=== PATIENT | female | born 1945 | race Caucasian/White ===

== ENCOUNTER 2017-10-19 11:42 | Emergency (ER) | payer MEDICARE, OTHER, SELFPAY ==
[2017-10-19 11:43] VITALS: BP 121/70; PULSE 65; RESP 18; TEMP 36.6; O2SAT 98; BMI 26.6
[2017-10-19] MEDS: Diphth,Pertuss(Acell),Tet Vac 0.5 ML Vial IM (13:58)
--- NOTE | 2017-10-19 14:13 | ED.VISSUMM ---
- ER Visit Summary Date of Service: 10/19/17 Chief Complaint: [Facial injury status post fall] History of Present Illness: The patient is a 72 F [presents to the emergency department after sustaining a fall while at [employer] today. Patient states that she missed a step coming down the steps and fell forward striking the edge of a metal shelf with the right side of her face. Patient denies loss of consciousness. Injury occurred around 10:40 AM. Patient denies any neck pain. She denies chest pain or abdominal pain. She denies any other injuries. Patient states her last tetanus shot was more than 20 years ago.] Physical Examination: [HEENT-PERRLA, EOMI. Cranial nerves II through XII grossly intact. TMs clear. Mucous membranes moist. No adenopathy. Patient has obvious contusion to the right eye with subconjunctival hemorrhage noted. Patient has a laceration through the right upper eyelid measuring approximately 2 cm in length. Patient has a nasal bone laceration that is well approximated and horizontal across the nasal bone. Patient tender over the nasal bone. Patient has tenderness over the right zygomatic arch. Cardiovascular-regular rate and rhythm without murmur or ectopy Lungs-clear to auscultation, chest wall stable without crepitus or subcu emphysema Abdomen-normoactive bowel sounds, soft, nontender, no rebound or rigidity, no peritoneal signs. Extremities-intact ?4, normal range of motion, normal pulses, atraumatic Test Results: [CT facial bones obtained showed fracture of the orbital wall as well as nasal bone and right zygomatic arch.] Emergency Department Course and Treatment: Case was discussed with Dr. Jose Cedillo who will see patient in the office once discharged from the ER and he will take care of the lacerations and evaluate the eye further. [] Treatment Plan: [Transfer to Dr. Jose Cedillo's office.] Disposition: [Transfer] Impression: [Right orbital fracture Nasal fracture Right upper lid laceration Nasal laceration] This note was generated with [employer] dictation software. It may contain incorrect words, spelling, and punctuation that were not noted in review of the chart prior to signing ED Disposition - Plan for ED Patient: Chief Complaint: Laceration Referrals: [facility],Out of [Primary Care Provider] -
--- NOTE | 2017-10-19 14:15 | ED.DEP ---
ED Disposition - Plan for ED Patient: Chief Complaint: Laceration Instructions: Facial Fracture, ED Fx Nasal Conf W X Ray, ED Laceration Facial Sutr Tape Prescriptions: Hydrocodone/Acetaminophen [[place] 5-325 Tablet] 1 ea PO 4X/DAY PRN PRN 5 Days #20 tab PRN Reason: Pain Referrals: [facility],Out of [Primary Care Provider] - Jose Cedillo MD [STAFF PHYSICIAN] - As soon as possible
[2017-10-19] MEDS: Ondansetron 4 MG/2 ML Vial IM (14:38)
[2017-10-19] MEDS: Morphine 4 MG/ML Syringe IM (14:38)
== END 2017-10-19 14:46 | disposition home or self-care (01) ==
LOC: ED 12:32
PROVIDERS: Emergency Provider Emergency Medicine; Family Provider Family Medicine
DX: S02.81XA Fracture of other specified skull and facial bones, right side, initial encounter for closed fracture (principal); S02.2XXA Fracture of nasal bones, initial encounter for closed fracture; S01.21XA Laceration without foreign body of nose, initial encounter; S01.111A Laceration without foreign body of right eyelid and periocular area, initial encounter; W10.9XXA Fall (on) (from) unspecified stairs and steps, initial encounter; Y93.89 Activity, other specified; Y92.22 Religious institution as the place of occurrence of the external cause; Y99.8 Other external cause status; I10 Essential (primary) hypertension
CPT/HCPCS: 70486; 90715; 96372; 99282; J2405

== ENCOUNTER 2017-10-28 08:37 | Day surgery (SDC) | payer MEDICARE, OTHER, SELFPAY ==
--- NOTE | 2017-10-24 15:55 | EKG12_ITS ---
Test Reason : PREOP Blood Pressure : / mmHG Vent. Rate : 055 BPM Atrial Rate : 055 BPM P-R Int : 166 ms QRS Dur : 080 ms QT Int : 448 ms P-R-T Axes : 045 -35 -11 degrees QTc Int : 428 ms Sinus bradycardia Left axis deviation Low voltage QRS Abnormal ECG Confirmed by AQUILINO NUNES ([id number]), tape editor ERYN MORE ([id number]) on 10/29/2017 2:48:05 PM Referred By: Chuck Carrera Confirmed By:AQUILINO NUNES
[2017-10-24 17:01] LABS: ALB/GLOB Ratio 0.9 RATIO (0.9-2.4); AST(SGOT) 19 U/L (15-37); Alanine Aminotransfer ALT/SGPT 29 U/L (13-56); Albumin, Serum 3.8 g/dL (3.2-5.0); Alkaline Phosphatase 65 U/L (45-117); Anion Gap 9 (5-15); BUN 12 mg/dL (7-18); BUN/Creat Ratio 13.8 RATIO (10-20); Calcium,Total 9.2 mg/dL (8.5-10.1); Chloride 103 mmol/L (98-107); Creatinine, Serum 0.87 mg/dL (0.55-1.02); EST Glomerular Filtration Rate 68 mL/min (>60); Est Glom Filt Rate - Afr Amer 82 mL/min (>60); Globulin 4.2 g/dL (2.2-4.2); Glucose 84 mg/dL (74-106); Potassium 3.6 mmol/L (3.5-5.1); Sodium Level 139 mmol/L (136-145)
[2017-10-28 09:02] LABS: Hemoglobin 13.7 g/dl (12.0-15.0); Mean Corp Hgb Conc 32.6 g/gl (32-36); Mean Corpuscular Hgb 29.7 pg (27.0-32.0); Mean Corpuscular Volume 91.1 fL (81-99); Mean Platelet Vol. 8.9 fl (6.2-12.0); Platelet Count 243 K/mm3 (150-450); RBC Distribution Width CV 13.7 % (11.6-14.6); RBC Distribution Width SD 45.5 fl (35.1-43.9); Red Blood Count 4.61 M/mm3 (4.2-5.4)
[2017-10-28 09:07] VITALS: BP 120/55; PULSE 62; RESP 14; TEMP 37.2; O2SAT 98; BMI 25.2
[2017-10-28 09:07] LABS: Scan Indicated on CBC? Y/N NO
[2017-10-28 09:09] LABS: Partial Thromboplast Time 29.2 Seconds (24.1-36.2)
[2017-10-28 09:16] LABS: AST(SGOT) 18 U/L (15-37); Alanine Aminotransfer ALT/SGPT 26 U/L (13-56); Albumin, Serum 3.6 g/dL (3.2-5.0); Alkaline Phosphatase 68 U/L (45-117); Bilirubin, Direct 0.16 mg/dL (0.00-0.30); Globulin 3.9 g/dL (2.2-4.2); Protein, Total 7.5 g/dL (6.4-8.2)
--- NOTE | 2017-10-28 14:11 | PCM.DC ---
You will use the following diet at home:: No restrictions, Other - clear liquids until saturday morning Discharge Activity: May not drive while taking narcotic pain medications. Call your doctor if your incision/area has: Increased Pain/ Swelling, - Additional Dressing/Incision Instructions:: erythromycin ointment to corner of eye skin twice daily. tobradex drops three times daily. head of bed elevated for 1 week. Allergies/Adverse Reactions: Allergies No Known Allergies Allergy (Verified 10/25/17 10:38) Medications to take at Discharge Alendronate Sodium [Fosamax] 70 mg PO Q7D@0700 10/19/17 Calcium Carbonate/Vitamin D3 [Calcium 600 + Vit D Caplet] 1 each PO BID 10/19/17 Clobetasol Propionate/Emoll [Clobetasol Emollient 0.05% Crm] 15 gm TP DAILY 10/19/17 Fluocinonide/Emollient Base [Fluocinonide-E 0.05% Cream] 15 gm TP DAILY 10/19/17 Hydrocodone/Acetaminophen [[place] 5-325 Tablet] 1 ea PO 4X/DAY PRN PRN 5 Days #20 tab 10/19/17 Meloxicam [Mobic] 15 mg PO DAILY PRN 10/19/17 Potassium Chloride [K-Dur] 20 meq PO DAILY 10/19/17 Pyridoxine HCl [Vitamin B-6] 50 mg PO DAILY 10/19/17 Telmisartan [Micardis] 20 mg PO QHS 10/19/17 Triamterene 37.5MG/Hctz 25MG [Maxzide 37.5 mg-25 mg Tablet] 1 tablet PO DAILY 10/19/17 Potassium Chloride [K-Dur] 20 meq PO MOTUTHSA 10/25/17 Clindamycin [Cleocin] 150 mg PO TID #21 cap 10/28/17 Hydrocodone/Acetaminophen [[place] 5-325 Tablet] 1 ea PO Q6H 5 Days #20 tab 10/28/17 Tobramycin/Dexamethasone [Tobradex Eye Drops] 2.5 ml OP TID 5 Days #1 bottle 10/28/17 The following prescriptions were given: Hydrocodone/Acetaminophen [[place] 5-325 Tablet] 1 ea PO Q6H 5 Days #20 tab Clindamycin [Cleocin] 150 mg PO TID #21 cap Tobramycin/Dexamethasone [Tobradex Eye Drops] 2.5 ml OP TID 5 Days #1 bottle Primary Care Physician: Blessing Carrasquillo [Primary Care Provider] - Test Results: Test results from this visit will be discussed in further detail at your follow-up appointment, if applicable. Please Follow Up With: Chuck Carrera MD When: 1 week Please Follow Up With: Jose Cedillo MD When: tomorrow
[2017-10-28 14:27] VITALS: BP 120/55; BP 151/82; PULSE 74; RESP 14; O2SAT 93
[2017-10-28 14:30] VITALS: BP 120/55; BP 139/79; PULSE 70; RESP 16; O2SAT 91
--- NOTE | 2017-10-28 14:39 | CT_ITS ---
STUDY: CT FACIAL BONES WITHOUT CONTRAST REASON FOR EXAM: Female, 72 years old. Facial swelling, postop RADIATION DOSAGE (If Supplied By Facility): CTDIvol = ( 29.38 ) mGy, DLP = ( 738.45 ) mGycm TECHNIQUE: The patient was scanned in a multi detector CT scanner. Sagittal and coronal images were reconstructed. Individualized dose optimization techniques were used for this CT. COMPARISON: Previous study of 10/19/2017 FINDINGS: A number of images are limited secondary to scan artifact caused by metallic dental work. There is soft tissue edema adjacent to the right mandible and cheek area. No abnormal fluid collection or soft tissue air is noted in the region. There are comminuted fractures of the right lateral and inferior orbital bolaños and lateral and posterior right maxillary sinus bolaños. There is a comminuted displaced fracture of the right zygomatic arch. There is an inferior intraorbital plate. The orbits and intra and extraconal orbital contents appear intact. Fixation hardware is seen along the anterior aspect of the right maxillary sinus and lateral right supraorbital region. There is moderate opacification of the right maxillary sinus consistent with blood. There is mucosal thickening of multiple right ethmoid air cells. There is a comminuted minimally displaced fracture of the nasal bones. The anterior nasal spine is intact. CT/Sinus/Facial Bone IMPRESSION: 1. Soft tissue edema adjacent to the right mandible and cheek area. There is no evidence of soft tissue hematoma, abnormal fluid collection, or gas. 2. Comminuted fractures with postoperative repair of multiple osseous structures as detailed above. 3. Moderate opacification of the right maxillary sinus consistent with blood. Mucosal thickening of multiple right ethmoid air cells. 4. Comminuted minimally displaced fracture of the nasal bones. Electronically Signed: Renato Marx MD at 16:55 EDT , Service support ,
[2017-10-28 14:45] VITALS: BP 120/55; BP 126/87; PULSE 68; RESP 16; O2SAT 92
[2017-10-28 15:00] VITALS: BP 120/55; BP 143/67; PULSE 64; RESP 16; TEMP 37; O2SAT 95
[2017-10-28] MEDS: HYDROcodone Bitartrate/Apap 5/325 Tablet PO (16:22)
[2017-10-28 17:04] VITALS: BP 120/55; BP 136/73; PULSE 75; RESP 16; TEMP 37.1; O2SAT 98
--- NOTE | 2017-10-29 08:22 | PCM.OPRPT ---
Problem List (1) Fracture of zygomaticomaxillary complex Status: Acute (2) Orbital floor (blow-out) closed fracture Status: Acute (3) Nasal bone fracture Status: Acute (4) Ectropion Status: Acute Report of Operation Date of Procedure: 10/29/17 Pre-Operative Diagnosis: 1. zygomaticomaxillary complex fracture, right. 2. orbital floor fracture, right. 3. nasal bone fracture, bilateral. 4. ectropion, right Post-Operative Diagnosis: 1. zygomaticomaxillary complex fracture, right. 2. orbital floor fracture, right. 3. nasal bone fracture, bilateral. 4. ectropion, right Surgery/Procedure Performed:: 1. open reduction / internal fixation zygomaticomaxillary fracture, right. 2. open reduction / internal fixation orbital floor fracture, right. 3. open reduction / internal fixation right midfacial fracture. 4. repair ectropion, right. 5. closed reduction nasal bones, bilateral Type of Anesthesia:: General Description of Procedure: on the day of the procedure after appropriate informed consent was obtained, the patient was brought to the operating room and placed in supine position on the operating table. she was placed under general endotracheal anesthesia by the anesthesiologist. the right gingivobuccal sulcus. lateral canthus and inferior conjunctiva was injected with lidocaine/epinephrine. the face was prepped and draped in sterile fashion. retractors were placed in the right upper lip and a 5cm gingivobuccal incision was made with the bovie. the periosteum was encountered and swept away with a freer elevator. the anterior maxilla and lateral butress were exposed, and the right infraorbital nerve was exposed and intact. there were numerous bony fragments as exemplified by the imaging; the medial buttress had a hairline fracture on the CT but appeared stable on exam. a #15 blade was used to extend the lateral canthus 1.5cm. a lateral canthotomy/cantholysis was performed with lea scizzors, mobilizing the lower lid. lid retractors were placed in the inferior lid and a transconjunctival approach was performed with the bovie. the lateral inferior orbital rim was severely displaced inferiorly. there were numerous islands of bone throughout the inferior rim, these were all dissected. using a freer, the periorbitum was dissected both medially and laterally. next, the fracture was mobilized with the T-bar after insertion and orbital contents that were displaced inferiorly into the maxillary sinus were carefully delivered superiorly. multiple bony islands of the floor were dissected and removed. the infraorbital nerve was dissected and left intact. after the contents were satisfactorily reduced, the posterior bony shelf was dissected and found to be 25mm from the rim. a right medpor plate was trimmed accordingly and saved for future use. the zygomaticofrontal fracture was dissected and plated with a 4-hole miniplate and 4mm screws. next, the inferior orbital rim was elevated and affixed to the zygoma, adjoining all rim fragments with individual 3 and 4mm screws. once the rim height was restored, a 4-hole L plate was bent to rejoin the maxillary fragments and reestablish the lateral butress. this was brought together satisfactorily with 4mm screws. the previously formed medpor was placed to reestablish the orbital floor with satisfactory placement on the posterior shelf and orbital rim. this was secured to the rim with a single 3mm screw. a boies elevator was used to medialize the left nasal bone and lateralize the right nasal bone, bringing the bony pyramid to the midline. the periosteum of the transconjuctival incision was brought together with 5-0 monocryl, and the conjunctiva with a single 7-0 vicryl. the lateral canthus was grasped with a guthrie forceps and the tarsus was skeletonized. using a 4-0 monocryl, the tarsus was securely anchored to whitnall's tubercle. a 7-0 vicryl stitch was used to reapproximate the ramírez line, and the lateral canthotomy was closed with 7-0 vicryl in layered closure. a forced duction test was performed on the right and no obvious entrapment or gaze limitation was observed. there was no significant resistance to retropulsion. the cutaneous T-bar incision was closed with a single 6-0 fast gut suture. the gingivobuccal incision was closed with 4-0 chromic. erythromycin ointment was placed in the eye. the patient was awoken from anesthesia and transferred to the PACU in stable condition. Grafts/Implants Used: brina miniplates/screws, medpor orbital floor implant - Admit VTE Documentation VTE Mechan Device Prophylaxis: [facility] VTE Pharm Prophylaxis ordered?: No Reason prophylaxis not ordered:: Treatment Not Indicated
--- NOTE | 2017-10-29 08:25 | OP.PCM_ITS ---
Problem List (1) Fracture of zygomaticomaxillary complex Status: Acute (2) Orbital floor (blow-out) closed fracture Status: Acute (3) Nasal bone fracture Status: Acute (4) Ectropion Status: Acute Report of Operation Date of Procedure: 10/29/17 Pre-Operative Diagnosis: 1. zygomaticomaxillary complex fracture, right. 2. orbital floor fracture, right. 3. nasal bone fracture, bilateral. 4. ectropion , right Post-Operative Diagnosis: 1. zygomaticomaxillary complex fracture, right. 2. orbital floor fracture, right. 3. nasal bone fracture, bilateral. 4. ectropion , right Surgery/Procedure Performed:: 1. open reduction / internal fixation zygomaticomaxillary fracture, right. 2. open reduction / internal fixation orbital floor fracture, right. 3. open reduction / internal fixation right midfacial fracture. 4. repair ectropion, right. 5. closed reduction nasal bones, bilateral Type of Anesthesia:: General Description of Procedure: on the day of the procedure after appropriate informed consent was obtained, the patient was brought to the operating room and placed in supine position on the operating table. she was placed under general endotracheal anesthesia by the anesthesiologist. the right gingivobuccal sulcus. lateral canthus and inferior conjunctiva was injected with lidocaine/epinephrine. the face was prepped and draped in sterile fashion. retractors were placed in the right upper lip and a 5cm gingivobuccal incision was made with the bovie. the periosteum was encountered and swept away with a freer elevator. the anterior maxilla and lateral butress were exposed, and the right infraorbital nerve was exposed and intact. there were numerous bony fragments as exemplified by the imaging; the medial buttress had a hairline fracture on the CT but appeared stable on exam. a #15 blade was used to extend the lateral canthus 1.5cm. a lateral canthotomy/cantholysis was performed with lea scizzors, mobilizing the lower lid. lid retractors were placed in the inferior lid and a transconjunctival approach was performed with the bovie. the lateral inferior orbital rim was severely displaced inferiorly. there were numerous islands of bone throughout the inferior rim, these were all dissected. using a freer, the periorbitum was dissected both medially and laterally. next, the fracture was mobilized with the T-bar after insertion and orbital contents that were displaced inferiorly into the maxillary sinus were carefully delivered superiorly. multiple bony islands of the floor were dissected and removed. the infraorbital nerve was dissected and left intact. after the contents were satisfactorily reduced, the posterior bony shelf was dissected and found to be 25mm from the rim. a right medpor plate was trimmed accordingly and saved for future use. the zygomaticofrontal fracture was dissected and plated with a 4- hole miniplate and 4mm screws. next, the inferior orbital rim was elevated and affixed to the zygoma, adjoining all rim fragments with individual 3 and 4mm screws. once the rim height was restored, a 4-hole L plate was bent to rejoin the maxillary fragments and reestablish the lateral butress. this was brought together satisfactorily with 4mm screws. the previously formed medpor was placed to reestablish the orbital floor with satisfactory placement on the posterior shelf and orbital rim. this was secured to the rim with a single 3mm screw. a boies elevator was used to medialize the left nasal bone and lateralize the right nasal bone, bringing the bony pyramid to the midline. the periosteum of the transconjuctival incision was brought together with 5-0 monocryl, and the conjunctiva with a single 7-0 vicryl. the lateral canthus was grasped with a guthrie forceps and the tarsus was skeletonized. using a 4-0 monocryl, the tarsus was securely anchored to whitnall's tubercle. a 7-0 vicryl stitch was used to reapproximate the ramírez line, and the lateral canthotomy was closed with 7-0 vicryl in layered closure. a forced duction test was performed on the right and no obvious entrapment or gaze limitation was observed. there was no significant resistance to retropulsion. the cutaneous T-bar incision was closed with a single 6-0 fast gut suture. the gingivobuccal incision was closed with 4-0 chromic. erythromycin ointment was placed in the eye. the patient was awoken from anesthesia and transferred to the PACU in stable condition. Grafts/Implants Used: brina miniplates/screws, medpor orbital floor implant - Admit VTE Documentation VTE Mechan Device Prophylaxis: [facility] VTE Pharm Prophylaxis ordered?: No Reason prophylaxis not ordered:: Treatment Not Indicated
== END 2017-10-28 17:28 | disposition home or self-care (01) ==
LOC: SDC 08:37 → AC 08:38
PROVIDERS: Anesthesiology; Family Provider Family Medicine; PCP Family Medicine; Visit Provider Otolaryngology
PROC: (CPT 21315; principal; 2017-10-28 09:45)
DX: S02.31XA Fracture of orbital floor, right side, initial encounter for closed fracture (principal); S02.40EA Zygomatic fracture, right side, initial encounter for closed fracture; S02.40CA Maxillary fracture, right side, initial encounter for closed fracture; S02.2XXA Fracture of nasal bones, initial encounter for closed fracture; H02.103 Unspecified ectropion of right eye, unspecified eyelid; W10.9XXA Fall (on) (from) unspecified stairs and steps, initial encounter; Y93.9 Activity, unspecified; Y92.22 Religious institution as the place of occurrence of the external cause; Y99.9 Unspecified external cause status; I10 Essential (primary) hypertension; G25.81 Restless legs syndrome; Z78.0 Asymptomatic menopausal state; Z79.899 Other long term (current) drug therapy; H02.102 Unspecified ectropion of right lower eyelid
CPT/HCPCS: 21315; 21365; 21390; 67914; 36415; 70486; 80053; 80076; 85027; 85610; 85730; 93005; C1713; J7120

== ENCOUNTER 2020-11-08 10:03 | Day surgery (SDC) | payer MEDICARE, OTHER, SELFPAY ==
--- NOTE | 2020-11-07 17:13 | HP.PCM_ITS ---
History and Physical Date of Admission: 11/08/20 HISTORY AND PHYSICAL ? Mary Ann Onofre 1945 ? ? REFERRING PHYSICIAN: Blessing Carrasquillo* ? CHIEF COMPLAINT: Post Op ? HPI: The patient is a 75 year old female presents with atypical ductal hyperplasia. She had on 10/21/2020, right needle core breast biopsy for which pathology revealed - intraductal papilloma with associated atypical duct hyperplasia. Microcalcifications are identified. She denies problems from the biopsy. ? ? PAST MEDICAL HISTORY ? Bursitis of left hip ? ? Impingement syndrome of left shoulder ? ? Osteoporosis, unspecified 02/18/2006 ? Osteoporosis ? Other affections of shoulder region, not elsewhere classified ? ? LEFT SHOULDER ? Other bursitis disorders ? ? LEFT SHOULDER ? Other specified disorders of rotator cuff syndrome of shoulder and allied disorders ? ? RIGHT SHOULDER ? Symptomatic menopausal or female climacteric states ? ? rare ? Unspecified essential hypertension ? ? Essential hypertension ? PAST SURGICAL HISTORY ? BX OF BREAST; INCISIONAL ? ? ? x4,both breasts, clip placement in right breast ? COLONOSCOP W/ OR W/O BRSH SPEC ? 08/18/2006 ? Colonoscopy ? PLATELETS ? 03/2020 ? infusion into left hip ? REM LESION FACE,EAR,EYEL <5MM Right ? ? right side of face, 4 plates and screws ? ? Current Outpatient Medications ? pyridoxine HCl, vitamin B6, (VITAMIN B-6 ORAL) Take by mouth once daily. ? losartan (COZAAR) 25 mg tablet ? ? KLOR-CON M20 20 mEq tablet ? ? TRIAMTERENE-HYDROCHLOROTHIAZIDE 37.5 MG-25 MG CAP Take one(1) capsule daily. ? alendronate sodium(FOSAMAX 70 MG TAB) Take once per week in the morning with a full glass of water, on an empty stomach, and do not take anything else by mouth or lie down for the next 30 minutes. ? cephALEXin (KEFLEX) 500 mg capsule TAKE ONE CAPSULE BY MOUTH 4 TIMES DAILY FOR 7 DAYS (Patient not taking: Reported on 10/17/2020) ? NEOMYCIN 3.5 MG/G-POLYMYXIN B 10,000 UNIT/G-DEXAMETH 0.1 % EYE OINT Use 1 application in the right eye three times daily. (Patient not taking: Reported on 10/17/2020 ) ? triamcinolone acetonide (KENALOG) 0.1 % cream as needed. (Patient not taking: Reported on 10/17/2020 ) ? meloxicam (MOBIC) 15 mg tablet Take 15 mg by mouth as needed. (Patient not taking: Reported on 10/17/2020 ) ? Cholecalciferol, Vitamin D3, (VITAMIN D) 1,000 unit ORAL Cap Take 1,000 Units by mouth once daily. (Patient not taking: Reported on 10/17/2020 ) ? Aspirin 81 mg ORAL Tab Take 81 mg by mouth. (Patient not taking: Reported on 10/17/2020 ) ? clobetasol 0.05 % TOPICAL ointment Apply to vulvar area BID for 2 weeks then dialy for 2 weeks, then daily as needed (Patient not taking: Reported on 10/17/2020) ? telmisartan(MICARDIS 20 MG TAB) one tablet daily (Patient not taking: ) ? omega-3 fatty acids(FISH OIL 500 MG CAP) Take one(1) capsule daily. (Patient not taking: ) ? CALCIUM-VITAMIN D3 500 MG ORAL WAFER ? ? VITAMIN E 100 UNIT CAP (Patient not taking: Swallow whole. DO NOT crush or break. ) ? COMPOUNDED PRESCRIPTION kcl xl 40meq bid. (Patient not taking: Reported on 10/17/2020) ? DAILY MULTIVITAMIN TAB (Patient not taking: ) ? ? ALLERGIES: Patient has no known allergies. ? PERSONAL HISTORY: ? Smoking status: Never Smoker ? Smokeless tobacco: Never Used Vaping Use ? Vaping Use: Never used Substance Use Topics ? Alcohol use: Yes ? ? Comment: RARELY ? Drug use: No FAMILY HISTORY ? Hypertension Mother ? ? [place], pulmonary fibrosis, Mother 09/2010 ? other (Pulmonary Fibrosis) Mother ? ? Hypertension Father ? ? Alzheimer's Disease Father ? ? Colon Cancer Other ? ? GRANDMOTHER ? Stroke Other ? ? GRANDFATHER ? Diabetes Other ? ? GRANDMOTHER ? ? REVIEW OF SYSTEMS: ?General:???The patient denies fatigue, denies weight loss, denies weight gain, denies feeling hot, and denies feelings of cold. ?Eyes: ?The patient denies glaucoma, NOTES eye injury/surgery, wears glasses or contacts. ?Ear/Nose/Throat: ?The patient denies allergies, NOTES hayfever, denies ear infections, and denies bloody noses. ?Cardiovascular: ?The patient denies chest pain, denies heart disease, NOTES high blood pressure,denies cardiac stent, denies prior heart attack, denies irregular heart beat, denies high cholesterol, ?denies poor circulation, denies heart failure, other cardiac issues, denies claudication, denies cold feet, denies peripheral arterial stent. ?Respiratory: ?The patient denies tuberculosis, denies pneumonia, denies frequent cough, denies pulmonary embolism, denies shortness of breath, and denies coughing up blood. ?Gastrointestinal: ?The patient denies difficulty swallowing, denies acid re flux, denies ulcers, denies vomiting, denies jaundice/hepatitis, denies gallbladder problems, denies black or tarry stools, denies hemorrhoids, denies bleeding from rectum, denies diverticulitis, NOTES constipation, denies diarrhea, denies loss of stool control, and denies hernias. ?Kidney/Bladder: ?The patient denies kidney stones, denies urine infections, and denies bloody urine. ?Skin: ?The patient denies a history of skin cancer, denies bleeding/changing moles, and denies a history of skin rash. ?Neurologic: ?The patient denies a history of epilepsy/convulsions, denies headaches, denies head/spinal injuries, and denies stroke/TIA. ?Psychiatric: ?The patient denies psychiatric medications, denies depression, and denies voices, denies substance abuse. ?Endocrine: ?The patient denies thyroid disorders, denies diabetes, and denies hormonal problems. ?Hematologic: ?The patient denies a history of bruising, denies bleeding, and denies anemia, denies blood clots. ?Infections: ?The patient denies a history of measles and mumps, denies rheumatic fever, and denies sexually transmitted diseases. ?Musculoskeletal: ?The patient denies back pain/injury, denies back problems, denies sciatica, denies knee/foot trouble, NOTES arthritis, or denies gout. ?Obstetrical: menarche onset at age 14, , first at age 25, breast feeding 6 m, BCP initially age 22 for about 5 y, menopause late 50s When was patient's last Mammogram screening? 09/16/2020 ?Last Colonoscopy: ?Unknown Elo West RN ? ? PHYSICAL EXAMINATION: General: ?The patient is 75 year old female, well nourished, well hydrated in no acute distress. ?The patient is oriented to time, place, and person. VITALS: Blood pressure 138/86, pulse 73, temperature 37.2 ?C (99 ?F), temperature source Temporal Artery, weight 77.1 kg (170 lb), SpO2 97 %. Body mass index is 26.63 kg/m?. Head ??Normocephalic. EOM intact with sclera clear and no icterus noted. Wearing glasses Neck - supple with no jugular venous distention noted. Trachea is midline. No carotid bruits noted. No thyroid enlargement or thyroid nodules detected. No masses noted. Chest/breast ??no asymmetry of breasts noted, no suspicious skin lesions noted - healing biopsy site of right breast, no nipple discharge and both nipples everted, no breast masses noted Lungs ??clear to auscultation. Normal breath sounds. No rales/rhonchi/wheezing noted. No labored breathing noted, such as retractions. No cough heard. Heart ??normal S1 and S2 auscultated. No rubs/clicks/murmurs noted. Regular rate. Abdomen ??soft and benign. Normal bowel sounds No abdominal bruits noted. Extremities ??no calf tenderness noted. No pitting edema noted. Skin ??normal skin integrity. Lymph ??no cervical adenopathy detected, no supraclavicular adenopathy detected, no axillary adenopathy detected Neurological ??gait normal, no focal deficits noted Psych ??calm and appropriate ? ? IMPRESSION: atypical ductal hyperplasia of right breast ? PLAN: I have discussed the above with the patient. I have reviewed the post procedure mammograms. I have offered right breast excisional biopsy via wire localization. I have explained the procedure to the patient. I have counseled the patient as to the risks of the procedure, including but not limited to: infection, bleeding, injury to any blood vessels/nerves, scar tissue, wound infections, complications of anesthesia, etc. ? the patient understands. The patient wishes to proceed. I have answered all questions to the patient?s satisfaction and the patient has no further questions.
[2020-11-08] VITALS (7 sets, daily range): BP systolic 118–141; BP diastolic 58–78; PULSE 51–91; RESP 16–18; TEMP 36.2–36.8; O2SAT 95–100; BMI 26.3
--- NOTE | 2020-11-08 | IMM_PTH ---
PATIENT: LAYLA SWANN LOC: [facility] [place] U#:[id number] AGE/SX: 75/F ROOM: RE11/08/[address]: Dr. Tammy Sanders MD : 1945 BED: DIS: 11/08/2020 SPEC #: [id number] RECD: 11/11/20 12:31 STATUS: RALPH REQ #: [id number] LEEANN: 11/08/20 00:[address]: Tammy Sanders DEPT: IMMUNOHISTOCHEMISTRY RECD BY: Dianne Frost ENTERED: 11/11/20 12:32 SP TYPE: IMMUNO OTHR DR: Dr. Blessing Carrasquillo MD Tissues: Right breast, NOS Procedures: Calponin-1(initial) CK5-6 (add) CK7 (add) P40 (add) PHYSICIAN & INSTITUTION [place] [id number] SPECIMEN INFORMATION: Tissue Source: Right breast biopsy Clinical Info: Atypical ductal hyperplasia of right breast Specimen Number: [id number] #6 & 9 CPT code: 81550, 85562 x3, 92742 x3 METHODOLOGY: Deparaffinized sections of prefer/formalin-fixed tissue or PAP/DQ stained slides are incubated with monoclonal/polyclonal antibodies/oligonucleotide probes. Localization is made via biotin free immunoperoxidase method. Appropriate controls are performed and reacted as expected. Results on target cell population are indicated in the following table: RESULTS: ANTIBODY / CLONE RESULT Block 6 P40 (BC28) positive Calponin-1 (WK480S) positive CK5-6 (D5 & 1684) positive CK7 (OV-TL12/30) positive These tests were developed and their performance characteristics determined by [facility]. They may not have been cleared or approved by the U.S. Food and Drug Administration. The FDA has determined that such clearance or approval is not necessary. The above immunohistochemical/dualISH markers are ordered and reviewed by the Pathologist. INTERPRETATION: Right breast, lumpectomy (block 6): Benign breast tissue. AM:tere 11/18/2020 ADDENDUM ADDENDUM ADDENDUM ADDENDUM ADDENDUM ADDENDUM ADDENDUM ADDENDUM ADDENDUM ADDENDUM ADDENDUM ADDENDUM ADDENDUM ADDENDUM ADDENDUM ADDENDUM ADDENDUM ADDENDUM ADDENDUM ADDENDUM ADDENDUM ADDENDUM ADDENDUM ADDENDUM 11/24/2020 12:51 ADDENDUM 11/24/2020 12:51 ADDENDUM 11/24/2020 12:51 ADDENDUM 11/24/2020 12:51 ADDENDUM 11/24/2020 12:51 ANTIBODY / CLONE RESULT Block 9 MORPHOMETRIC ANALYSIS ER (clone 6F11) positive (>95%, strong intensity) ME (clone 16/1E2) positive (75%, strong intensity) Her-2Neu (clone CB11) negative (0) The prognostic test for HER2 is performed on formalin-fixed paraffin embedded tissue. A 3+ (positive) staining pattern is defined as intense, homogeneous, complete, circumferential membranous staining in >10% of contiguous tumor cells. A similar weak (2+) staining pattern is interpreted as equivocal. KATEY follow-up testing is recommended for all equivocal cases. Positivity/negativity for ER/ME is reported if > or < 1% of the tumor cells are immuno- reactive, respectively. The ASCO/CAP criteria is used for scoring. Reference: Journal of Clinical Oncology, 2013; 31:1172-3900 & 2010; 16:6845-2580. Duration of fixation: 6.5 Hrs; Sample Adequate: Yes. These assays have not been validated on decalcified tissues. Results should be interpreted with caution given the likelihood of false negativity on decalcified specimens. INTERPRETATION: Right breast, lumpectomy (block 9): Ductal carcinoma in situ. AM:tere 11/24/2020
--- NOTE | 2020-11-08 | IMM_PTH ---
PATIENT: LAYLA SWANN [place] [facility] [place][id number] AGE/SX: 75/F ROOM: RE11/08/[address]: Dr. Tammy Sanders MD : 1945 BED: DIS: 11/08/2020 SPEC #: [id number] RECD: 11/11/20 12:31 STATUS: RALPH REQ #: [id number] LEEANN: 11/08/20 00:[address]: Tammy Sanders DEPT: IMMUNOHISTOCHEMISTRY RECD BY: Dianne Frost ENTERED: 11/11/20 12:32 SP TYPE: IMMUNO OTHR DR: Dr. Blessing Carrasquillo MD Tissues: Right breast, NOS Procedures: Calponin-1(initial) CK5-6 (add) CK7 (add) P40 (add) PHYSICIAN & INSTITUTION [place] [address] SPECIMEN INFORMATION: Tissue Source: Right breast biopsy Clinical Info: Atypical ductal hyperplasia of right breast Specimen Number: [id number] #6 CPT code: 68290, 51844 x3 METHODOLOGY: Deparaffinized sections of prefer/formalin-fixed tissue or PAP/DQ stained slides are incubated with monoclonal/polyclonal antibodies/oligonucleotide probes. Localization is made via biotin free immunoperoxidase method. Appropriate controls are performed and reacted as expected. Results on target cell population are indicated in the following table: RESULTS: ANTIBODY / CLONE RESULT Block 6 P40 (BC28) positive Calponin-1 (NW529O) positive CK5-6 (D5 & 1684) positive CK7 (OV-TL12/30) positive These tests were developed and their performance characteristics determined by [facility]. They may not have been cleared or approved by the U.S. Food and Drug Administration. The FDA has determined that such clearance or approval is not necessary. The above immunohistochemical/dualISH markers are ordered and reviewed by the Pathologist. INTERPRETATION: Right breast, core biopsy: Benign breast tissue. AM:tere 11/14/2020
--- NOTE | 2020-11-08 | BRBX_PTH ---
PATIENT: LAYLA SWANN LOC: [facility] – [place] U#:[id number] AGE/SX: 75/F ROOM: RE11/08/[address]: Dr. Tammy Sanders MD : 1945 BED: DIS: 11/08/2020 SPEC #: [id number] RECD: 11/08/20 12:49 STATUS: RALPH REJenniffer #: [id number] LEEANN: 11/08/20 00:[address]: Tammy Sanders DEPT: SURGICAL PATHOLOGY RECD BY: Dianne Frost ENTERED: 11/08/20 13:18 SP TYPE: BREAST BX OTHR DR: Dr. Blessing Carrasquillo MD Tissues: Right breast, NOS Procedures: Surgery Specimen Level V HEADER OPERATION: Breast biopsy via wire localization PRE-OP DIAGNOSIS: Atypical ductal hyperplasia of right breast TISSUE SUBMITTED: Right breast biopsy, two short stitches - posterior border, one long stitch - lateral, one short stitch - superior MICROSCOPIC DIAGNOSIS Right breast mass, lumpectomy: Ductal carcinoma in situ, low grade and involving intraductal papilloma. See synoptic report below. AM:tere 11/22/2020 COMMENT BREAST CANCER SUMMARY Procedure: Wire-guided lumpectomy Specimen: Type: Partial breast Estimated Size of tumor: 0.5 x 0.5 x 0.3cm Laterality: Right breast Number of blocks: 1 of 12 Architectural pattern: Papillary Nuclear grade: 1 Necrosis: Not present Margins: Uninvolved by in situ carcinoma. Distance of closest margin: 5 millimeters for posterior margin. Regional lymph node: No lymph nodes submitted. Microcalcifications: Present in non-neoplastic tissue. Additional pathologic findings: Fibrocystic change, usual intraductal hyperplasia with focal atypical intraductal hyperplasia and intraductal papilloma. Ancillary studies: ER: >95%, strong intensity OK: 75%, strong intensity Hrs2dfm: 0 (negative) Clinical history: Atypical ductal hyperplasia of right breast. PATHOLOGIC STAGE: Tis(DCIS) Nx Mx The above summary is in compliance with [employer] [place] Path[employer] (CAP) Cancer Protocol Checklist and [place] Joint Committee on Cancer (AJCC) Staging Manual, 8th Ed. Immunohistochemistry ([id number]) supports the above diagnosis. This case was seen in consultation with Dr. Clifton of [place] who concurs with the above diagnosis. This case was discussed with Dr. Sanders 11/21/20. Case has been reviewed in consultation with Dr. Amezquita who concurs with the above diagnosis. IDC:SJ MICROSCOPIC DESCRIPTION Slides are reviewed. GROSS DESCRIPTION Received fresh for intraoperative consultation labeled with the patient's name is a specimen designated right breast biopsy. The specimen consists of a piece of fibroadipose tissue with needle localization measuring 8 x 6 x 3 cm. The specimen is oriented by a suture as follows: two short stitches - posterior border, one long stitch - lateral, one short stitch - superior. The specimen is inked as follows: anterior - yellow, posterior - black, superior - blue, inferior - green, medial - red and lateral - orange. Serial sections reveal an ill-defined lesion with focal area of congestion measuring 1.5 x 1 cm. This lesion is close to the lateral and posterior margin of the specimen. This is conveyed to the surgeon intraoperatively. Sections of the rest of the specimen reveal tabares-yellow adipose cut surfaces mixed with tabares-white fibrous area. Teacher Counselor sections are submitted in 12 cassettes as follows: 1 - perpendicular medial, posterior, superior and inferior margins, 2-5 - lesion closest to lateral and posterior margins, 6-12 - sales representative advertising sections from the other area. Sections are submitted after additional fixation. / SJ:tere 11/09/20 TC:0 CPT: 29815
--- NOTE | 2020-11-08 10:41 | BI_ITS ---
SURGICAL BREAST SPECIMEN RADIOGRAPH CLINICAL: Document presence of tissue clip marker in biopsy specimen. FINDINGS: Specimen shows presence of tissue clip marker. Electronically Signed: Jose Antonio Tyson MD at 15:32 EDT , Service support , BI/Breast Biopsy Specimen
[2020-11-08] MEDS: Lactated Ringers 1,000 ML 75 ML IV (10:46)
--- NOTE | 2020-11-08 11:32 | OP.PCM_ITS ---
Report of Operation Date of Procedure: 11/08/20 Pre-Operative Diagnosis: right breast atypical ductal hyperplasia/intraductal p apilloma Post-Operative Diagnosis: same Surgery/Procedure Performed:: right breast lumpectomy via wire localization Surgeon: Tammy Sanders venereal disease control head: Federico Rodriguez Type of Anesthesia: MAC/Supplemental/Local Anesthesiologist: Aditya Romeo Specimen's removed: right breast tissue Estimated Blood Loss (mL): < 10 ml Fluids Replaced: 800 ml RL Description of Procedure: Stereotactic placement of wire After informed consent was given, the patient was brought into the Breast Stereotactic Radiology suite. Appropriate time out protocol was followed. The patient was then placed in the prone position on the Norden stereotactic table. The patient?s right breast was placed in the opening at the head of the table. A senior asic engineer compression mammogram was then obtained in the lateral view. The marker clip that was previously placed was identified. Stereo pictures of the lesion were then taken for XYZ coordinates. The Kopans needle was then positioned where it would be entering into the patient?s breast. The skin at this site was then cleansed with a surgical skin preparation. The skin and subcutaneous tissues at this site were then infiltrated with 1% xylocaine. The Kopans needle was then positioned into the patient?s breast at the proper coordinates of depth. A senior asic engineer film was obtained which revealed the wire in proper position. The patient was then placed in the supine position and the wire was taped into place. A unilateral mammogram in the CC and MLO view were then taken for use in the OR. The patient tolerated this portion of the procedure well and was brought to the AC awaiting surgery in the OR. Lumpectomy The patient was then brought to the Operating Room. Appropriate time out protocol was followed. The patient was then placed on the operating table in the supine position. A wire had already been placed in the stereotactic biopsy room in the radiology department as described above. The right breast with the wire in placed was then prepped with a sterile surgical skin preparation and sterile surgical drapes were placed. The skin and subcutaneous tissues at the site of the breast lesion was then in filtrated with 1% xylocaine with epinephrine. A transverse skin incision was then made at the wire entrance site with a 15 blade scalpel lateral to the areolar complex of the right breast, 9:00 position. It was carried down through to the subcutaneous tissues. Hemostasis was controlled with electrocautery. The wire was then palpated out within the breast tissue. The breast tissue surrounding the wire was then carefully palpated out and from the surrounding tissues using electrocautery. The breast tissue, once from the breast, was then forwarded to the radiology department, where a specimen mammogram revealed that the marker clip was within the specimen. The breast tissue was then forwarded to pathology for analysis. The wound cavity was carefully examined. No further suspicious tissue was palpated or visualized. Hemostasis was carefully controlled with electrocautery. The subdermal tissues were then approximated with vicryl suture. The incision was then reapproximated close using running monocryl suture. Cavilon and steristrips were then placed to reinforce the skin closure. Sponge, needle, and instrument count were verified and correct at the time of skin closure. A sterile dressing was then applied. The patient was then brought to the Recovery Room in stable condition. Complications none noted Admit VTE Documentation VTE Present on Admission: Yes VTE Mechan Device Prophylaxis: SCD's
[2020-11-08] MEDS: Cefazolin 2 GM in 0.9% Normal Saline 100 ML IV (11:47)
[2020-11-08] MEDS: Lidocaine 1% /Epi 1:100 (20ml) 20 ML Vial (12:25)
--- NOTE | 2020-11-08 13:07 | EX.PCM.DISCH ---
Discharge Instructions Follow Up Care Test Results: Test results from this visit will be discussed in further detail at your follow-up appointment, if applicable. Discharge Plan Admission Attending Provider: Tammy Sanders Primary Care Provider: Blessing Carrasquillo Instructions Additional Instructions / Restrictions: Recommended pain control regimen - May take 600 mg ibuprofen (Motrin) and then in 3-4 hours, may take 650 mg acetaminophen (Tylenol), then in 3-4 hours may take 600 mg ibuprofen, then in 3-4 hours may take 650 mg acetaminophen and so on for 2-3 days May take narcotic pain medication for pain that is not controlled by above and at night for comfort through the night Leave dressings in place May shower, do not scrub in the areas of the dressings as they may unravel. Do not soak - no tub baths/swimming Ice applied to areas of discomfort may help No lifting/pushing/pulling greater than 10 pounds with right arm for two weeks. For breast surgeries - wear supportive bra during the day to prevent the weight of your breasts from pulling on the incisional site. Please call my office for an appointment to see me in 1-2 weeks. Office number is If any questions, please call my office at and ask the chain saw operator for the general surgery nurses desk Discharge Orders/Prescriptions Prescriptions: New hydrocodone-acetaminophen 5-325 mg tablet 1 tab PO Q8H 5 Days Qty: 15 RF: 0 No Action potassium chloride [Klor-Con M20] 20 MEQ tablet 20 meq PO BID RF: 0 triamterene-hydrochlorothiazid [Maxzide-25mg] 1 EACH tablet 1 tab PO DAILY RF: 0 clobetasol-emollient 15 GM cream 15 g TP MOWEFR RF: 0 fluocinonide-emollient [Fluocinonide-E] 15 GM cream 15 g TP DAILY PRN (Reason: Skin Cleansing) RF: 0 calcium carbonate-vitamin D3 1 EACH tablet 1 ea PO BID RF: 0 meloxicam 15 MG tablet 15 mg PO DAILY PRN (Reason: Pain) RF: 0 alendronate 70 MG tablet 70 mg PO WE RF: 0 pyridoxine (vitamin B6) 50 MG tablet 50 mg PO DAILY RF: 0 losartan 25 mg Tablet 25 mg PO 1500 RF: 0 Restasis 0.05 % Dropperette 1 drp EACH EYE Q12H RF: 0 Referrals / Follow Up: Blessing Carrasquillo MD [Primary Care Provider] -
== END 2020-11-08 14:48 ==
LOC: SDC 10:09 → AC 10:11
PROVIDERS: PCP Family Medicine; Referring Provider Surgery; Visit Provider Surgery
PROC: (CPT 19301; principal; 2020-11-08 12:45)
DX: N60.91 Unspecified benign mammary dysplasia of right breast (principal); I10 Essential (primary) hypertension; M81.0 Age-related osteoporosis without current pathological fracture; Z79.1 Long term (current) use of non-steroidal anti-inflammatories (NSAID); Z79.82 Long term (current) use of aspirin; Z82.49 Family history of ischemic heart disease and other diseases of the circulatory system; Z83.3 Family history of diabetes mellitus
CPT/HCPCS: 00400; 19301; 19281; 76098; 88305; 88307; 88341; 88342; J7120; J2405

== ENCOUNTER 2022-05-29 13:00 | Outpatient (RCR) | payer MEDICARE, OTHER, SELFPAY ==
--- NOTE | 2022-04-17 13:59 | HP.PTEVAL ---
Patient's Visit Information LAYLA SWANN is a 77 year old F referred to Physical Therapy by Dr. Beronica Tejeda MD with a diagnosis of OVERACTIVE BLADDER, INCOMPLETE PROLAPSE. Date of Evaluation: 03/27/22 Physical Therapist: Lavern Hanson PT, Cert MDT - Visit Plan Frequency: 1x/Week Duration: 8-10 WKS Plan: URGE AND FREQUENCY INCONTINENCE Behavioral MODIFICATION TRAINING AND EDUCATION. PELVIC FLOOR, CORE AND HIP STRETCHING AND STRENGTHENING. - Subjective Work/Leisure: RETIRED. WALKING ABOUT 30 MIN A DAY. ALSO DOING EX 3 TIMES A WK AT HOME. RETIRED RN. Disability: NO. Present symptoms: URGENCY, SOMETIMES LOSS OF BLADDER CONTROL UPON RISING IN THE MORNING. MOST OF THE TIME MAKES IT TO THE BATHROOM IN TIME. NOT HAVING PELVIC PAIN. Present since: ABOUT 2 YEARS. Is it getting better, worse or staying the same: GETTING WORSE. Commenced as a result of: NO APPARENT REASON. Symptoms at onset: SAME. Worse: SEEING THE BATHROOM/GETTING NEAR BATHROOM. Better: NOTHING. Disturbed sleep: GETTING UP APPROX 2 TIMES A NIGHT TO URINATE. Previous history/Previous treatment: NONE. OTHER: STEROID CREAM, ORAL YEAST TABLET AND ORAL ANTIBIOTIC FOR INFECTION - STARTED MEDICATION SATURDAY. Coughing/sneezing: PATIENT DENIES LEAKING. Gait: NORMAL. Bowel INCONTINENCE: NO. Testing: RECENT URINALYSIS AND CULTURE OF LABIA AT DR TEJEDA'S OFFICE. PMH/Recent major surgery: DX'D WITH LICHEN SCLEROSIS ABOUT 10 YEARS AGO. L HIP BURSITIS. R SHLD TEAR. L SHLD IMPINGEMENT. OSTEOPOROSIS. HTN. BREAST PRE-CANCER APPROX 2 YEARS AGO TREATED WITH SURGERY AND RADIATION. DRY EYE SYNDROME. R FACE ORIF SURGERY FROM FALL. - Objective Sitting/Standing Posture: FAIR. REDUCED LUMBAR LORDOSIS BUT NO RELEVANT LATERAL SHIFT. Active Correction of posture: NE. Other Observations: INDEP GAIT AND TRANSFERS. Sensory deficit: MAICOL LE LIGHT TOUCH SENSATION GROSSLY INTACT AND SYMMETRICAL. ROM deficit: MAICOL LE'S WFL EXCEPT MAICOL HIP INTERNAL/EXTERNAL ROATION AND MAICOL HIP ADDUCTOR TIGHTNESS. L HIP ROTATORS TIGHTER THAN RIGHT AND PATIENT REPORTS H/O L HIP BURSITIS. Motor deficit: MAICOL LE'S GROSSLY 5/5 WITH MMT'ING EXCEPT HIPS 4/5. Dural Signs: NEGATIVE MAICOL LE'S. Lumbar mvmt loss: flex - NIL. ext - MOD. R SG - MOD. L SG - SOLO. PATIENT DENIES PAIN WITH LUMBAR ROM TESTING. Core strength: POOR. Palpation: INTERNAL PELVIC EXAM NOT PERFORMED DUE TO INFECTION. SUBJECTIVELY PATIENT THINKS SHE CAN CONTRACT HER PELVIC FLOOR FOR 10 SEC'S BUT. FUNCTIONAL SCREEN: Incontinence Impact Questionnaire Score: 3. Urogenital Distress Inventory Score: 15. TREATMENT - THER ACT: INSTRUCTED PATIENT IN DIAPHRAGMATIC BREATHING AND QUICK FLICK KEGELS. WRITTEN HEP INSTRUCTIONS PROVIDED. - Goals Goal 1:: DECREASE C/O URGE INCONTINENCE Goal Time Frame: 8-12 Weeks Goal 2:: NORMALIZE VOIDING PATTERNS Goal Time Frame: 8-12 Weeks Goal 3:: PATIENT WILL BE INDEP WITH HEP FOR CONTINUED IMPROVEMENT ONCE FORMAL PHYSICAL THERAPY CONCLUDES Goal Time Frame: 8-12 Weeks - Anticipated Interventions Patient/Client Instruction: Educate patient on: Condition, Plan of Care, Risk Factors For the Purpose of:: To improve self management Therapeutic Exercise to Include: Strength training, Flexibilty training, Neuromotor development For the Purpose of:: To improve muscle performance and motor function, To increase tolerance to activity/condition/position, To improve ability of physical actions for home/community/work/leisure Thank you for the opportunity to evaluate your patient. For Medicare and Medicare HMO plans, please review the plan of care and approve it. It will need to be FAXED BACK to us at [phone] for Medicare purposes. For Medicare only, by signing this I certify the plan of care. Please let me know if there are questions or concerns regarding this plan of care. Physician Signature: Date:
--- NOTE | 2022-05-08 13:34 | HP.PTREVAL ---
Dr. Beronica Aragon MD, It has been my pleasure to treat LAYLA SWANN over the last 6 visits for OVERACTIVE BLADDER, INCOMPLETE PROLAPSE. Please see the progress note below for an update on the physical therapy plan of care! Subjective: PATIENT REPORTS SHE IS DOING GOOD. STATES SHE CAN HOLD IT LONG SHE NEEDS TO NOW. MY BURSITIS IS TALKING TO ME TODAY (L HIP). MASSAGE YESTERDAY. Objective/Function: IMPROVING. PATIENT DEMONSTRATED/COMMUNICATED A GOOD UNDERSTANDING OF ALL INSTRUCTIONS AFTER GIVEN TODAY. TOLERATED EX WELL. Plan Plan: PROGRESS KEGELS TO SITTING, STANDING AND CONSIDER WITH MINI SQUAT. URGE AND FREQUENCY INCONTINENCE Behavioral MODIFICATION TRAINING AND EDUCATION. PELVIC FLOOR, CORE AND HIP STRETCHING AND STRENGTHENING. Goals Goal 1:: DECREASE C/O URGE INCONTINENCE Goal Time Frame: 8-12 Weeks Goal Progress: Progressing Goal 2:: NORMALIZE VOIDING PATTERNS Goal Time Frame: 8-12 Weeks Goal Progress: Progressing Goal 3:: PATIENT WILL BE INDEP WITH HEP FOR CONTINUED IMPROVEMENT ONCE FORMAL PHYSICAL THERAPY CONCLUDES Goal Time Frame: 8-12 Weeks Goal Progress: Progressing Anticipated Interventions Patient/Client Instruction: Educate patient on: Condition, Plan of Care, Risk Factors For the Purpose of:: To improve self management Therapeutic Exercise to Include: Strength training, Flexibilty training, Neuromotor development For the Purpose of:: To improve muscle performance and motor function, To increase tolerance to activity/condition/position, To improve ability of physical actions for home/community/work/leisure Please do not hesitate to contact me at [phone] by phone or if you have questions or concerns regarding this new plan of care! Sincerely, Lavern Hanson, PT, Cert MDT
--- NOTE | 2022-05-29 13:41 | HP.PTDCSUM ---
It has been my pleasure to treat LAYLA SWANN referred by Dr. Beronica Aragon MD, with the diagnosis of OVERACTIVE BLADDER, INCOMPLETE PROLAPSE for a total of 9 visit(s). Discharge Date: Please see the following information for a summary of their discharge status. Subjective: I'M HAVING A GOOD WEEK. PATIENT REPORTS HER URGENCY AND LEAKING IS MUCH BETTER. STATES THAT SHE CAN MAKE IT TO THE BATHROOM IN TIME IN THE MORNINGS NOW TOO. % Improvement: 95 Objective/Function: ALL GOALS MET. PATIENT IS INDEP WITH A HEP AND APPROPRIATE FOR DISCHARGE. PATIENT IS AGREEABLE. Goal 1:: DECREASE C/O URGE INCONTINENCE Goal Progress: Goal Met Goal 2:: NORMALIZE VOIDING PATTERNS Goal Progress: Goal Met Goal 3:: PATIENT WILL BE INDEP WITH HEP FOR CONTINUED IMPROVEMENT ONCE FORMAL PHYSICAL THERAPY CONCLUDES Goal Progress: Goal Met Plan: D/C If there are questions or concerns regarding this patient's physical therapy, please feel free to call me at [phone]. Thank you for the referral of this patient. Sincerely, Lavern Hanson, PT, Cert MDT
== END 2022-05-29 15:12 | disposition home or self-care (01) ==
LOC: PT 13:00
PROVIDERS: PCP Family Medicine; Referring Provider Urology; Visit Provider Urology
DX: N81.2 Incomplete uterovaginal prolapse (principal)
CPT/HCPCS: 97162; 97530

== ENCOUNTER → 2024-03-09 | Outpatient (CLI) | payer MEDICARE, OTHER, SELFPAY ==
--- NOTE | 2024-03-09 14:34 | CT_ITS ---
EXAM: CT MAXILLOFACIAL WITHOUT INTRAVENOUS CONTRAST CLINICAL INDICATION: Other chronic sinusitis TECHNIQUE: Helically acquired images were obtained of the face without intravenous contrast. This CT exam was performed using one or more of the following dose reduction techniques: automated exposure control, adjustment of the mA and/or kV according to patient size, and/or use of iterative reconstruction technique. COMPARISON: 10/28/2017 FINDINGS: BONES/JOINTS: Degenerative changes in the cervical spine. Bilateral TMJ arthrosis. Chronic right ZMC type fracture status post repair with plate screw fixation of the maxilla and mesh fixation of the orbital floor. No discrete lytic or blastic abnormalities. SOFT TISSUES: No significant abnormality. No focal subcutaneous swelling. No discrete fluid collections. ORBITS: Status post bilateral ocular lens extraction presumptively for treatment of cataracts. SINUSES: No significant findings. No significant mucosal thickening. No sinus pathway obstruction. MASTOID AIR CELLS: Complete opacification of the right mastoid and petrous apex. Partial opacification of the left mastoid. No definite erosive changes or discrete mastoid fracture is identified. AUDITORY SYSTEM: Right middle ear partial opacification. DENTAL: No significant findings. No periodontal osseous erosion. BRAIN AND EXTRA-AXIAL SPACES: There is non-specific periventricular hypoattenuation which is most commonly related to chronic microvascular ischemic disease in a patient of this age. There is no mass, mass-effect, or shift of the midline structures. No evidence of acute infarct or acute intracranial hemorrhage. There is no evidence of pathologic extra-axial fluid. There is no hydrocephalus. Patent basal cisterns. OROPHARYNX: Tonsillar calcifications are likely the result of chronic and/or recurrent tonsillar infection/inflammation. No nasopharyngeal mucosal lesion to suggest a cause for this dictation tube dysfunction. CT/Sinus/Facial Bone IMPRESSION: 1. No evidence of significant sinonasal opacity or sinus pathway obstruction. 2. Right mastoid, petrous apex, and middle ear opacities. Trace left mastoid opacity. Correlate clinically. Consider otolaryngology consultation. Consider occult underlying 3. Chronic right CMC type fracture status post repair with plate screw fixation of the maxilla and mesh fixation of the orbital floor. No acute orbital pathology. Electronically Signed: Karl Ng DO at 22:20 EST ,
== END | disposition home or self-care (01) ==
LOC: CT 14:33
PROVIDERS: PCP Family Medicine; Referring Provider Otolaryngology; Visit Provider Otolaryngology
DX: J32.8 Other chronic sinusitis (principal)
CPT/HCPCS: 70486

== ENCOUNTER → 2024-05-25 | Outpatient (CLI) | payer MEDICARE, OTHER, SELFPAY ==
--- NOTE | 2024-05-25 11:51 | EKG12_ITS ---
Test Reason : PRE OP Blood Pressure : */* mmHG Vent. Rate : 61 BPM Atrial Rate : 61 BPM P-R Int : 170 ms QRS Dur : 80 ms QT Int : 430 ms P-R-T Axes : 46 -42 8 degrees QTcB Int : 432 ms Normal sinus rhythm Left axis deviation Low voltage QRS Septal infarct , age undetermined Abnormal ECG Confirmed by EVA RODRIGUEZ, ROSEMARY ([id number]), editor newspaper YARIEL ZAVALA ([id number]) on 05/25/2024 2:00:48 PM Referred By: Balbir Carrera Confirmed By: ROSEMARY VELASQUEZ MD
[2024-05-25 12:44] LABS: Hematocrit 40.3 % (37-47); Hemoglobin 13.6 g/dL (12.0-15.0); Mean Corp Hgb Conc 33.7 g/dL (32-36); Mean Corpuscular Hgb 30.9 pg (27.0-32.0); Mean Corpuscular Volume 91.6 fL (81-99); Mean Platelet Vol. 9.5 fl (6.2-12.0); Platelet Count 222 K/mm3 (150-450); RBC Distribution Width CV 12.2 % (11.6-14.6); RBC Distribution Width SD 41.1 fl (35.1-43.9); White Blood Count 4.8 K/mm3 (4.4-11.0)
[2024-05-25 13:13] LABS: Anion Gap 11 (5-15); BUN 13 mg/dL (4-19); BUN/Creat Ratio 10.9 RATIO (10-20); Calcium,Total 9.5 mg/dL (7.6-11.0); Carbon Dioxide 26.9 mmol/L (21.0-32.0); Chloride 102 mmol/L (98-108); Creatinine, Serum 1.19 mg/dL (0.70-1.20); EST Glomerular Filtration Rate 47 (>60); Glucose 97 mg/dL (70-99); Potassium 3.9 mmol/L (3.3-5.1); Sodium Level 140 mmol/L (133-145)
== END | disposition home or self-care (01) ==
LOC: PSN 11:51
PROVIDERS: PCP Family Medicine; Referring Provider Otolaryngology; Visit Provider Otolaryngology
DX: Z01.812 Encounter for preprocedural laboratory examination (principal); Z01.810 Encounter for preprocedural cardiovascular examination
CPT/HCPCS: 36415; 80048; 85027; 93005

== ENCOUNTER 2024-07-11 10:51 | Emergency (ER) | payer MEDICARE, OTHER, SELFPAY ==
[2024-07-11 10:52] VITALS: BP 166/89; PULSE 60; RESP 18; TEMP 36.9; O2SAT 98; BMI 25.7
--- NOTE | 2024-07-11 10:57 | EX.ED.UPPERE ---
HPI History of Present Illness HPI Narrative: Patient presents with bilateral shoulder pain that became worse today. Patient states that has been gradually getting worse over the past few days. Patient states that over the past 2 days her legs have also felt weak. Patient states her shoulder pain is worse with walking. Patient states it is better with heat. Patient states she has had pain in her shoulders in the past but now it is starting to extend to her elbows and forearms. Patient denies any trauma or injury. Patient describes her pain as aching. Patient also admits to some neck pain. Chief Complaint: Upper Extremity Injury Informant: patient Onset/Context/Timing Onset: Days Context: Gradual Onset Timing: Continuous Quality of Pain: Aching Location: Bilateral shoulders, left worse than right Worsened by: Walking Relieved by: Heat packs Associated Symptoms Associated Symptoms: Negative for Parasthesia, Weakness or Loss of Funtion PFSH [facility] Medical History Loss of hearing Wears glasses Alcohol use Hematoma History of bursitis Bladder disease Easy bruising Restless legs Migraine headache Injury of head and neck History of GI bleed Heartburn Non-smoker History of edema History of stress test Hypertension Hx of reduction of orbital fracture Home Medications ?Medication ?Instructions ?Recorded ?Last Taken ?Type alendronate 70 mg tablet 70 mg PO WE 10/19/17 10/19/17 History 70 MG calcium 600 mg (as 1 ea PO BID 10/19/17 10/19/17 History carbonate)-vitamin D3 10 mcg (400 1 EACH unit) tablet clobetasol-emollient 0.05 % 15 g TP MOWEFR 10/19/17 10/19/17 History topical cream 15 GM potassium chloride 20 mEq 20 meq PO BID 10/19/17 10/19/17 History tablet,extended 20 MEQ release(part/cryst) (Klor-Con M) triamterene 37.5 1 tab PO DAILY BP 10/19/17 10/19/17 History mg-hydrochlorothiazide 25 mg 1 TABLET tablet (Maxzide-25mg) cyclosporine 0.05 % eye drops in a 1 drp EACH EYE Q12H 11/02/20 Unknown History dropperette (Restasis) losartan 25 mg tablet 25 mg PO 1500 11/02/20 Unknown History famotidine 40 mg tablet 40 mg PO DAILY 07/11/24 Unknown History pantoprazole 40 mg granules 40 mg PO DAILY 07/11/24 Unknown History delayed-release for susp in packet (Protonix) pantoprazole 40 mg tablet,delayed 40 mg PO DAILY 07/11/24 Unknown History release psyllium husk 0.4 gram capsule 0.4 g PO BID 07/11/24 Unknown History (Daily Fiber) pyridoxine (vitamin B6) 100 mg 100 mg PO DAILY 07/11/24 Unknown History tablet Allergy/AdvReac Type Severity Reaction Status Date / Time No Known Allergies Allergy Verified 11/08/20 10:29 Surgical History Hx of colonoscopy Hx of right cataract extraction Hx of left cataract extraction Social History Smoking Status: Never smoker ROS ROS ED Constitutional Constitutional ED: Denies chills or fever(s) Eyes Eyes: Denies blurry vision or change in vision ENT ENT ED: Reports rhinorrhea; Denies sore throat Cardiovascular Cardiovascular: Denies chest pain or palpitations Respiratory/Chest Respiratory/Chest: Denies cough or dyspnea Gastrointestinal Gastrointestinal: Reports nausea; Denies vomiting Genitourinary Genitourinary ED: Denies dysuria or hematuria Musculoskeletal Musculoskeletal: Reports neck pain; Denies back pain Integumentary Denies abscess or rash Neurologic Neurologic: Denies headache(s) or weakness Allergic/Immunologic Allergic/Immunologic ED: Denies mouth swelling or urticaria EXAM Physical Exam Const Vital Signs: 07/11/24 10:52 Temperature 98.4 F Temperature Source Oral Pulse Rate 60 Respiratory Rate 18 Blood Pressure 166/89 H Blood Pressure Mean 114 Pulse Ox 98 Oxygen Delivery Method Room Air Positive well nourished and well developed General Appearance ED: well developed and NAD HEENT Reports moist mucous membranes Neck full ROM and supple Resp normal respiratory effort and clear to auscultation bilaterally Cardio regular rate and regular rhythm GI non-tender and non-distended Auscultation: normoactive bowel sounds Extremity normal to inspection and full ROM Extremity Narrative: There is tenderness over the anterior aspect of the left shoulder. There is no edema or ecchymosis. There is no bony crepitance or step-off. There is mild tenderness over the anterolateral aspect of the right proximal humerus. There is no edema or ecchymosis. There is good range of motion of both shoulders. Strength is 5/5 bilaterally upper and lower extremities. There are no sensory deficits noted. General Extremety ED: Negative for edema General Extremity: Negative for edema Neuro oriented x3, CN's II-XII intact bilaterally, moves all extremities, no focal motor deficits and no sensory deficits noted Sensorium / Orientation: alert Motor Exam: strength 5/5 throughout Psych mental status grossly normal MDM MDM MDM Narrative Medical decision making narrative: Differential diagnosis includes musculoskeletal pain, tendinitis, cardiac dysrhythmia, cardiac ischemia, pneumonia, bronchitis, electrolyte abnormality, and anxiety. EKG will be obtained to assess for cardiac dysrhythmia and cardiac ischemia. Chest x-ray will be obtained to assess for pneumonia or bronchitis. CBC will be obtained to assess for leukocytosis and anemia. Basic metabolic profile will be obtained to assess for electrolyte abnormality and renal function. High-sensitivity troponin will be obtained to assess for cardiac ischemia. Lab Data Attestation: I reviewed the patient's lab results. Lab results narrative: CBC was reviewed and was within normal limits. Basic metabolic profile was reviewed and was within normal limits. High-sensitivity troponin was reviewed and was normal at 9. 2-hour repeat high-sensitivity troponin was reviewed and was 9. Radiography Chest X-Ray - ED: 2 View, Read by ED Physician, Read by Radiologist and No Acute Disease Diagnostic Testing: PA and lateral chest x-ray was obtained. There are 2 views. On my independent interpretation, lung flores are clear. There is normal cardiac silhouette. Bony thorax is normal. There is no acute process noted. Radiologist also interpreted the x-ray and agrees. EKG Initial EKG: Attestation: I personally reviewed and interpreted this EKG as follows: Interpretation: No Acute Injury Pattern and Sinus Bradycardia (49) Comments: EKG was obtained. On my independent interpretation, it showed a bradycardia with a rate of 49. MA interval, QRS interval, and QTc intervals were all normal. There is left axis deviation -39. There are no acute ST or T wave changes. Prior EKG tracings: available for review Prior: Unchanged (05/25/2024) Treatment and Re-Evaluation Narrative: Patient was given aspirin. Patient was feeling better on reevaluation. Patient was advised of her findings. Patient has a HEART score of 3. Patient was advised that this is low risk for acute cardiac event. Patient was instructed to follow-up with her primary care physician in 5 to 7 days. Patient was instructed take Tylenol or ibuprofen as needed for pain. Patient was instructed to return if worse in any way. Patient understood and was agreeable with the plan. All questions were answered. Discharge Plan Triage Chief Complaint: Upper Extremity Injury ED Provider: Robert Ayala Dx/Rx/DC Orders Clinical Impression: Bilateral shoulder pain, Elevated blood pressure reading Instructions: ED Shoulder Pain, Uncertain Cause Prescriptions: No Action potassium chloride [Klor-Con M20] 20 MEQ tablet 20 meq PO BID triamterene-hydrochlorothiazid [Maxzide-25mg] 1 EACH tablet 1 tab PO DAILY clobetasol-emollient 15 GM cream 15 g TP MOWEFR calcium carbonate-vitamin D3 1 EACH tablet 1 ea PO BID alendronate 70 MG tablet 70 mg PO WE losartan 25 mg Tablet 25 mg PO 1500 cyclosporine [Restasis] 0.05 % Dropperette 1 drp EACH EYE Q12H pyridoxine (vitamin B6) 100 mg tablet 100 mg PO DAILY psyllium husk [Daily Fiber] 0.4 gram capsule 0.4 g PO BID famotidine 40 mg tablet 40 mg PO DAILY pantoprazole [Protonix] [address] for susp in packet 40 mg PO DAILY pantoprazole 40 mg tablet,delayed release (DR/EC) 40 mg PO DAILY Primary Care Provider: Blessing Carrasquillo Referrals: Blessing Carrasquillo MD [Primary Care Provider] - 5-7 Days Print Language: Malian Disposition Disposition: Home, Self Care
--- NOTE | 2024-07-11 11:22 | EKG12_ITS ---
Test Reason : Blood Pressure : */* mmHG Vent. Rate : 49 BPM Atrial Rate : 49 BPM P-R Int : 168 ms QRS Dur : 80 ms QT Int : 460 ms P-R-T Axes : 74 -39 -12 degrees QTcB Int : 415 ms Sinus bradycardia Left axis deviation Low voltage QRS Abnormal ECG Confirmed by Jett Lee ([id number]), online content editor ELLY OSULLIVAN ([id number]) on 07/20/2024 1:02:56 PM Referred By: Confirmed By: Jett Lee
[2024-07-11] MEDS: Aspirin 81 MG TAB.CHEW 324 MG PO (11:36)
[2024-07-11 11:39] LABS: Absolute Neutrophil Count 4.5 X10^3/uL (2.0-7.7); Basophil# 0.04 X10^3/uL; Basophil% 0.5 % (0-1); Eosinophil# 0.04 X10^3/uL; Eosinophils% 0.5 % (0-5); Hematocrit 41.8 % (37-47); Mean Corp Hgb Conc 33.5 g/dL (32-36); Mean Corpuscular Hgb 30.7 pg (27.0-32.0); Mean Corpuscular Volume 91.7 fL (81-99); Mean Platelet Vol. 9.2 fl (6.2-12.0); Monocyte# 0.99 X10^3/uL; Monocyte% 12.5 % (0-10); NRBC Flagged by Analyzer 0 % (0-5); Neutrophil # 4.54 X10^3/uL (2.7-7.7); Neutrophil % 57.1 % (47-70); Platelet Count 237 K/mm3 (150-450); RBC Distribution Width CV 13.3 % (11.6-14.6); RBC Distribution Width SD 45.1 fl (35.1-43.9); Red Blood Count 4.56 M/mm3 (4.2-5.4); White Blood Count 7.9 K/mm3 (4.4-11.0)
[2024-07-11 11:44] VITALS: BP 164/82; PULSE 51; RESP 20; O2SAT 98
--- NOTE | 2024-07-11 12:00 | RAD_ITS ---
PROCEDURE: CHEST PA AND LATERAL 07/11/2024 REASON FOR EXAM: CHEST PAIN TECHNIQUE: Frontal and lateral views of the chest. COMPARISON: None. FINDINGS: Hardware: EKG lead wires project over the chest. Heart: Heart size is normal Mediastinum: Unremarkable Lungs: Expanded and clear Bones: No acute bony process identified RAD/Chest PA and Lateral IMPRESSION: Negative chest [facility]
[2024-07-11 12:14] LABS: Anion Gap 11 (5-15); BUN 20 mg/dL (4-19); BUN/Creat Ratio 21.3 RATIO (10-20); Calcium,Total 9.2 mg/dL (7.6-11.0); Carbon Dioxide 23.5 mmol/L (21.0-32.0); Chloride 106 mmol/L (98-108); Creatinine, Serum 0.93 mg/dL (0.70-1.20); EST Glomerular Filtration Rate 63 (>60); Estimated Creatinine Clearance 52.51 ml/min (50-250); Glucose 85 mg/dL (70-99); Potassium 3.6 mmol/L (3.3-5.1); Sodium Level 140 mmol/L (133-145); Troponin T High Sensitivity 9 ng/L (<=14)
[2024-07-11 12:30] VITALS: BP 140/77; PULSE 52; RESP 21; O2SAT 100
[2024-07-11 12:44] VITALS: BP 140/77; PULSE 51; RESP 16; O2SAT 99
[2024-07-11 14:00] VITALS: BP 149/72; PULSE 44; RESP 14; O2SAT 97
[2024-07-11 14:00] LABS: Troponin T High Sens 2 HR 9 ng/L (<=14)
[2024-07-11 14:51] VITALS: BP 139/70; PULSE 55; RESP 14; TEMP 36.6; O2SAT 98
== END 2024-07-11 14:52 | disposition home or self-care (01) ==
PROVIDERS: Emergency Provider Emergency Medicine; PCP Family Medicine; Visit Provider Emergency Medicine
DX: M25.512 Pain in left shoulder (principal); R03.0 Elevated blood-pressure reading, without diagnosis of hypertension; M25.511 Pain in right shoulder; M54.2 Cervicalgia; R11.0 Nausea; I10 Essential (primary) hypertension
CPT/HCPCS: 71046; 80048; 84484; 85025; 93005; 99284; A4216

== ENCOUNTER → 2025-02-02 | Outpatient (CLI) | payer MEDICARE, OTHER, SELFPAY ==
[2025-02-02 15:53] LABS: Hematocrit 40.1 % (37-47); Hemoglobin 13.4 g/dL (12.0-15.0); Mean Corp Hgb Conc 33.4 g/dL (32-36); Mean Corpuscular Volume 90.3 fL (81-99); Mean Platelet Vol. 9.6 fl (6.2-12.0); Platelet Count 238 K/mm3 (150-450); RBC Distribution Width CV 12.9 % (11.6-14.6); RBC Distribution Width SD 42.6 fl (35.1-43.9); Red Blood Count 4.44 M/mm3 (4.2-5.4); White Blood Count 5.5 K/mm3 (4.4-11.0)
[2025-02-02 16:29] LABS: Anion Gap 9 (5-15); BUN 16 mg/dL (4-19); BUN/Creat Ratio 16.2 RATIO (10-20); Calcium,Total 9.6 mg/dL (7.6-11.0); Carbon Dioxide 28.0 mmol/L (21.0-32.0); Chloride 102 mmol/L (98-108); Glucose 102 mg/dL (70-99); Potassium 3.5 mmol/L (3.3-5.1)
== END | disposition home or self-care (01) ==
LOC: LAB 14:01
PROVIDERS: PCP Family Medicine; Referring Provider Otolaryngology; Visit Provider Otolaryngology
DX: Z01.818 Encounter for other preprocedural examination (principal)
CPT/HCPCS: 36415; 80048; 85027